=== PATIENT | male | born 2000 | race Two or more races ===

== ENCOUNTER 2025-01-13 17:36 | Emergency (ER) | payer MEDICAID, SELFPAY ==
--- NOTE | 2025-01-13 17:44 | XR_ITS ---
Examination:Left hip AP, lateral, AP pelvis 3 views Technique: Hip AP lateral, AP pelvis, 3 views Exam date and time:January 13, 2025 at 1816 hours INDICATIONS: Patient fell out of bed this morning with injury to the left hip, left hip pain FINDINGS: No left hip fracture or dislocation Right hip bones of the pelvis intact IMPRESSION: No acute hip or pelvic fracture.
--- NOTE | 2025-01-13 17:44 | XR_ITS ---
Examination: Shoulder,right, 3 views Technique: Shoulder AP internal rotation, AP external rotation, Y view shoulder, 3 views Exam date and time :January 13, 2025 1812 hours INDICATIONS: Patient fell out of bed this morning with injury of the shoulder, shoulder pain. FINDINGS: No shoulder fracture or dislocation No foreign body IMPRESSION: No shoulder fracture or dislocation
--- NOTE | 2025-01-13 17:44 | XR_ITS ---
Examination: AP chest single view TECHNIQUE: AP portable upright chest single view Exam date time: January 13, 2025 at 1811 hours Comparison July 31, 2009 INDICATIONS: Patient fell out of bed this morning with changes chest, chest pain FINDINGS: Normal heart size No pneumothorax Clavicles ribs appear intact IMPRESSION: No pneumothorax pulmonary contusion or hemothorax
--- NOTE | 2025-01-13 17:46 | EDNOTE_ITS ---
ED Fall Injury RME/HPI General Chief Complaint: Hip Injury/Pain Stated Complaint: LEFT HIP PAIN Time Seen by Provider: 01/13/25 17:40 Arrival date/time: 01/13/25 17:36 RME / HPI RME / HPI Narrative: 24-year-old male patient was brought in by law enforcement from senior living after a fall from bunk bed. Patient was sleeping, having a dream, according to him was running in his dream, and fell off the bunk bed on the top landing on his left hip resulting in the pain to the hip, left shoulder, described as dull ache, severity moderate patient told me that he protected his head, denies any headache neck pain denies any LOC. Patient is unable to ambulate due to pain. Denies any other injury incident happened an hour prior to ER visit. Related Data Home Medications ?Medication ?Instructions ?Recorded ?Confirmed No Known Home Medications 10/15/1809/18 Allergies Allergy/AdvReac Type Severity Reaction Status Date / Time No Known Allergies Allergy Verified 10/15/18 17:05 Review of Systems Review of Systems Narrative Review of Systems: Review of system reviewed and within normal limits except mentioned in HPI ED Exam Narrative Physical exam: VITAL SIGNS: Reviewed. GENERAL APPEARANCE: Alert and interactive, follows commands, no acute distress, HEAD AND FACE: Non-traumatic. ENT: PERRL, pink conjunctivitis, eyelid no trauma, Mucous membrane moist. NECK: Supple, nontender, no nuchal rigidity. CHEST: No tenderness, no crepitus, no paradoxical movement, no retractions. LUNGS: Clear, well ventilated, symmetric, no rales, no wheezing, no ronchi, no stridor, good breath sounds bilaterally. HEART: Regular rate, regular rhythm, no murmur, no gallops. ABDOMEN: Soft, positive bowel sounds, nondistended, no guarding, nontender, no rebound, no masses, RECTAL: Deferred. GENITAL: Deferred. NEUROLOGICAL: Gross motor function intact sensory function intact, Appropriate for age. MUSCULOSKELETAL: low back nontender, full range of motion. EXTREMITIES: Left hip tenderness, no deformity no swelling, left shoulder tenderness, no swelling or deformity,, full range of motion. SKIN: Color pink, dry, no rash, no lacerations, no abrasions, no contusions. LYMPHATICS: Deferred. Course Quality Measures none Orders Category Date Time Status XR chest 1V Stat Exams 01/13/25 17:44 Completed XR hip LT w pelvis 2-3V Stat Exams 01/13/25 17:44 Completed XR shoulder RT min 2V Stat Exams 01/13/25 17:44 Completed Ibuprofen Tab [Motrin Tab] Med 01/13/25 17:44 Discontinued 800 mg PO X1 ONE Vital Signs Vital signs: Vital Signs Temperature 98.2 F 01/13/25 17:54 Pulse Rate 57 L 01/13/25 17:54 Respiratory Rate 18 01/13/25 17:54 Blood Pressure 125/81 01/13/25 17:54 Pulse Oximetry (%) 96 01/13/25 17:54 Oxygen Delivery Method Room Air 01/13/25 17:54 Fall [facility] Narrative MDM Narrative:: 24-year-old male patient was brought in by law enforcement from senior living after a fall from bunk bed. Patient was sleeping, having a dream, according to him was running in his dream, and fell off the bunk bed on the top landing on his left hip resulting in the pain to the hip, left shoulder, described as dull ache, severity moderate patient told me that he protected his head, denies any headache neck pain denies any LOC. Patient is unable to ambulate due to pain. Denies any other injury incident happened an hour prior to ER visit. X-ray of the hip came back unremarkable x-ray of the shoulder came back unremarkable. Results discussed with the patient. Patient is medically cleared to go back to senior living. Patient data External records reviewed:: None Clinical information provided by:: patient and law enforcement Social determinants that could affect healthcare access:: none Patient has the following chronic illnesses:: None How is presenting disease/condition affected by chronic disease/condition?: uneffected by Evaluation data The following diagnostics were reviewed and interpreted by me:: radiology exam(s) Lab and/or radiology exams considered but not ordered:: None Interpretation Summary: See results in MDM Medications / Prescriptions Medications or Prescriptions considered but not ordered:: None Medication administrations:: Medication Administration History Discontinued Medications Ibuprofen (Ibuprofen Tab 400 Mg Tablet) 800 mg PO X1 ONE Stop: 01/13/25 17:45 Last Admin: 01/13/25 18:31 Dose: 800 mg Documented By: Motrin Consultations Consultation(s) initiated? (list below): No Diagnosis Fall Differential Diagnosis: other (Fall, shoulder pain, hip contusion) Most likely diagnosis given after review of the tests above:: Hip contusion, shoulder pain, fall Admission Indicated Admission indicated?: not indicated Admission Request Was there a request for admission?: No Disposition Plan Disposition Plan: Discharge Discharge Attestation Discharge Attestation: The patient was given an opportunity to ask questions and understood the discharge instructions. Discharge instructions specifically effects, indications for sooner follow up or return to the emergency department, and the expected course of current diagnosis. Patient condition: Stable Discharge Plan Plan Patient Disposition: HOME (Self Care) Disposition Comment: Stable Prescriptions/Referrals Prescriptions/Med Rec: No Action No Known Home Medications Referrals: No Primary/Family,Physician [Primary Care Provider] - In 1 week Problem List Clinical Impression: Contusion of hip, Shoulder pain, Fall Patient/Caregiver Discharge Instructions Discharge Activity: activity as tolerated Education Materials: ED Hip Contusion Additional Instructions: Thank you for the opportunity for serving you today. You are stable for discharged . You are advised to: Follow-up with your PCP in 1 to 2 days once you get out of senior living Return to ED for worsening of symptoms Take [id number] Tylenol or Motrin as needed Print Language: Danish Stand Alone Forms: Iliana Award Info., Patient Portal Info Letter DB/IRON Supervising Physician DB/IRON Supervising Physician: MD Renate
[2025-01-13 17:54] VITALS: BP 125/81; PULSE 57; RESP 18; TEMP 36.8; O2SAT 96; BMI 29.2
[2025-01-13] MEDS: IBUPROFEN TAB 400 MG TABLET 800 MG PO (18:31)
== END 2025-01-13 20:16 | disposition home or self-care (01) ==
PROVIDERS: Emergency Provider Emergency Medicine
DX: S70.02XA Contusion of left hip, initial encounter (principal); W06.XXXA Fall from bed, initial encounter; M25.512 Pain in left shoulder
CPT/HCPCS: 71045; 73030; 73502; 99283; A9270